=== PATIENT | female | born 2000 | race Caucasian/White ===

== ENCOUNTER → 2024-07-26 13:21 | Outpatient (REF) | payer BC, SELFPAY | LOC: REG 13:21 | PROVIDERS: ATTENDING PHYSICIAN Nurse Practitioner Family | DX: L70.0 Acne vulgaris (principal) | CPT/HCPCS: 36415; 82627; 84270; 84402; 84403 ==

== ENCOUNTER → 2024-08-09 12:37 | Outpatient (REF) | payer BC, SELFPAY ==
[2024-08-09 14:08] LABS: % Basophils 0.4 % (0-2); % Eosinophils 1.6 % (0-6); % Immature Granulocytes 0.4 % (0-0.5); % Monocytes 6.9 % (1.7-9.3); % Neutrophils 58.7 % (42.2-75.2); Absolute Eosinophils 0.1 10^3/uL (0-0.7); Absolute Lymphocytes 1.6 10^3/uL (1.2-3.4); Absolute Monocytes 0.4 10^3/uL (0.1-0.6); Hematocrit 43.1 % (37.0-47.0); Hemoglobin 14.4 g/dL (12.0-16.0); Mean Corp Hgb Conc. 33.4 g/dL (33.0-37.0); Mean Corpuscular Volume 92.9 fL (81.0-99.0); Mean Platelet Volume 10.4 fL (7.4-10.4); Nucleated Red Blood Cells % 0 %; Platelet Count 196 10^3/uL (130-400); Red Blood Cell Count 4.64 10^6/uL (4.20-5.40); Red Cell Dist. Width 12.2 % (11.5-14.5); White Blood Cell Count 5.1 10^3/uL (4.8-10.8)
[2024-08-09 14:11] LABS: ALT (SGPT) 16 U/L (0-35); AST (SGOT) 20 U/L (14-36); Albumin 4.2 g/dl (3.5-5.0); Alkaline Phosphatase 48 U/L (38-126); Blood Urea Nitrogen 10 mg/dl (7-17); Calcium 9.2 mg/dl (8.4-10.2); Carbon Dioxide 27 mmol/L (22-30); Chloride 101 mmol/L (98-107); Glucose 73 mg/dl (70-99); Potassium 4.3 mmol/L (3.5-5.1); Sodium 137 mmol/L (135-145); Total Bilirubin 0.4 mg/dl (0.2-1.3); Total Protein 7.3 g/dl (6.3-8.2); eGFR > 60.00
[2024-08-09 14:38] LABS: TSH Reflex To Free T4 1.19 uIU/ml (0.47-4.68)
== END ==
LOC: REG 12:37
PROVIDERS: ATTENDING PHYSICIAN Internal Medicine
DX: Z00.00 Encounter for general adult medical examination without abnormal findings (principal); L70.0 Acne vulgaris; R53.83 Other fatigue; Z68.26 Body mass index [BMI] 26.0-26.9, adult; G47.30 Sleep apnea, unspecified
CPT/HCPCS: 36415; 80053; 84443; 85025

== ENCOUNTER → 2024-08-30 14:09 | Outpatient (REF) | payer BC, SELFPAY | LOC: DHSLP 14:09 | PROVIDERS: ATTENDING PHYSICIAN Internal Medicine | DX: G47.30 Sleep apnea, unspecified (principal); R06.83 Snoring | CPT/HCPCS: 95800 ==